=== PATIENT | male | born 1950 | race Caucasian/White ===

== ENCOUNTER 2023-07-06 06:45 | Outpatient (CLI) | payer OTHER, SELFPAY ==
[2023-07-06 07:17] VITALS: PULSE 82; RESP 18; O2SAT 94
[2023-07-06] MEDS: albuterol 2.5 mg/3 mL Neb INHALATION (07:19)
[2023-07-06 07:21] VITALS: PULSE 80
== END 2023-07-06 06:46 | disposition home or self-care (01) ==
LOC: RT 06:45
PROVIDERS: PCP Nurse Practitioner Family; Visit Provider Nurse Practitioner Family
DX: J44.9 Chronic obstructive pulmonary disease, unspecified (principal)
CPT/HCPCS: 94060; J7613